=== PATIENT | male | born 1950 | race Caucasian/White ===

== ENCOUNTER 2017-06-29 19:04 | Inpatient (IN) | payer MEDICARE, BC ==
[~2017-06-29] VITALS: Ht 188 cm; Wt 95.6 kg
[2017-06-29] VITALS (277 sets, daily range): BP systolic 121–147; BP diastolic 54–65; PULSE 62–82; TEMP 98.2–98.9; O2SAT 69–100
[2017-06-29 20:44] LABS: HEMATOCRIT 18.5 % (42.0-52.0); HEMOGLOBIN 5.8 g/dl (13.5-18.0)
[2017-06-29 20:50] LABS: INR 1.2 (0.8-3.0); PROTHROMBIN TIME 13.2 SECONDS (9.7-12.8)
[2017-06-29] MEDS ORDERED: ZANTAC 150MG T150 MG PO (20:51)
[2017-06-29] MEDS ORDERED: AVAPRO TAB150 MG/TAB PO (20:52)
[2017-06-29] MEDS ORDERED: ZOCOR 20MG20 MG PO (20:52)
[2017-06-29] MEDS ORDERED: CELEXA10 MG PO (20:53)
[2017-06-29] MEDS ORDERED: FLOMAX 0.40.4 MG/CAP PO (20:53)
[2017-06-29] MEDS ORDERED: MOTRIN 400400 MG/TAB PO (20:56)
[2017-06-30] VITALS (1273 sets, daily range): BP systolic 109–147; BP diastolic 42–78; PULSE 55–81; TEMP 97–98.9; O2SAT 56–100
[2017-06-30 06:15] LABS: BASO % 0.4 % (0.0-2.0); EOS # 0.2 (0.0-0.7); EOS % 2.1 % (0-4.0); GRAN # 5.6 (1.4-6.5); GRAN % 73.2 % (42.2-75.2); LYMPH # 1.3 (1.2-3.4); LYMPH % 16.6 % (20.0-51.0); MEAN CELL VOLUME 96 fl (80.0-100.0); MEAN CORPUSCULAR HGB CONC 31 g/dl (33.0-37.0); MEAN PLATELET VOLUME 11.1 fl (7.4-10.4); MONO # 0.6 (0.1-0.6); MONO % 7.4 % (1.7-9.3); PLATELET COUNT 235 K/mm3 (130-400); RED BLOOD COUNT 2.47 M/mm3 (4.20-5.60); WHITE BLOOD COUNT 7.7 K/mm3 (4.8-10.8)
[2017-06-30 06:17] LABS: HEMATOCRIT 23.7 % (42.0-52.0); HEMOGLOBIN 7.4 g/dl (13.5-18.0); MEAN CORPUSCULAR HEMOGLOBIN 30 pg (27.0-31.0)
[2017-06-30 06:19] LABS: CREATININE, serum 0.88 mg/dL (0.66-1.25); POTASSIUM 3.6 mmol/L (3.4-5.0)
[2017-06-30] MEDS ORDERED: ADVIL200 MG PO (10:52)
[2017-06-30] MEDS ORDERED: ALIGN (10:53)
[2017-06-30 12:11] LABS: HEMATOCRIT 27.4 % (42.0-52.0); HEMOGLOBIN 8.7 g/dl (13.5-18.0)
[2017-06-30 20:46] LABS: HEMATOCRIT 23.9 % (42.0-52.0); HEMOGLOBIN 7.6 g/dl (13.5-18.0)
[2017-07-01] VITALS (909 sets, daily range): BP systolic 101–138; BP diastolic 48–76; PULSE 57–77; TEMP 98–98.7; O2SAT 80–100
[2017-07-01 08:08] LABS: BASO % 0.2 % (0.0-2.0); EOS # 0.1 (0.0-0.7); EOS % 1.3 % (0-4.0); GRAN # 6.7 (1.4-6.5); GRAN % 79.8 % (42.2-75.2); LYMPH % 11.3 % (20.0-51.0); MEAN CELL VOLUME 95 fl (80.0-100.0); MEAN CORPUSCULAR HGB CONC 31 g/dl (33.0-37.0); MEAN PLATELET VOLUME 10.9 fl (7.4-10.4); MONO # 0.6 (0.1-0.6); MONO % 6.9 % (1.7-9.3); PLATELET COUNT 244 K/mm3 (130-400); RED BLOOD COUNT 2.62 M/mm3 (4.20-5.60); WHITE BLOOD COUNT 8.4 K/mm3 (4.8-10.8)
[2017-07-01 08:09] LABS: HEMOGLOBIN 7.7 g/dl (13.5-18.0); MEAN CORPUSCULAR HEMOGLOBIN 29 pg (27.0-31.0)
[2017-07-01 08:16] LABS: CREATININE, serum 0.88 mg/dL (0.66-1.25); POTASSIUM 4.2 mmol/L (3.4-5.0)
[2017-07-01 21:15] LABS: HEMATOCRIT 25.6 % (42.0-52.0); HEMOGLOBIN 7.9 g/dl (13.5-18.0)
[2017-07-02] VITALS (10 sets, daily range): BP systolic 120–150; BP diastolic 32–58; PULSE 59–80; TEMP 98.2–99.3
[2017-07-02 07:02] LABS: HEMATOCRIT 24.7 % (42.0-52.0); HEMOGLOBIN 7.7 g/dl (13.5-18.0)
[2017-07-02] MEDS ORDERED: PROTONIX 40MG T40 MG PO (11:20)
[2017-07-02 16:16] LABS: HEMATOCRIT 29.5 % (42.0-52.0); HEMOGLOBIN 9.2 g/dl (13.5-18.0)
== END 2017-07-02 17:20 | disposition home or self-care (01) | DRG 375 ==
LOC: IMCU 19:04 → ICU 19:19 → MEDICAL 19:19
PROVIDERS: Internal Medicine; Internal Medicine Gastroenterology; Nurse Practitioner
PROC: 0DB68ZX Excision of Stomach, Via Natural or Artificial Opening Endoscopic, Diagnostic (ICD-10-PCS; principal; 2017-07-01 11:30)
PROC: 0DJD8ZZ Inspection of Lower Intestinal Tract, Via Natural or Artificial Opening Endoscopic (ICD-10-PCS; 2017-07-01 11:30)
DX: C16.8 Malignant neoplasm of overlapping sites of stomach (principal); D62 Acute posthemorrhagic anemia; I10 Essential (primary) hypertension; E78.5 Hyperlipidemia, unspecified; N40.0 Benign prostatic hyperplasia without lower urinary tract symptoms; K57.30 Diverticulosis of large intestine without perforation or abscess without bleeding; Z79.1 Long term (current) use of non-steroidal anti-inflammatories (NSAID)
CPT/HCPCS: 99223-AI; 99232-AI; 99239; C9113; J2250; J2405; J3010; J7030; P9016

== ENCOUNTER 2017-12-10 12:52 | Outpatient (CLI) | payer MEDICARE, BC ==
[~2017-12-10] VITALS: Ht 180.3 cm; Wt 73.6 kg
[~2017-12-10 12:52] MED LIST: ADVIL200 MG PO; ALIGN; AVAPRO TAB150 MG/TAB PO; CELEXA10 MG PO; FLOMAX 0.40.4 MG/CAP PO; MOTRIN 400400 MG/TAB PO; PROTONIX 40MG T40 MG PO; ZANTAC 150MG T150 MG PO; ZOCOR 20MG20 MG PO
[2017-12-10 13:56] VITALS: BP 110/75; PULSE 78
[2017-12-10] MEDS ORDERED: MUCINEX 60600 MG/TA1 PO (14:00)
[2017-12-10] MEDS ORDERED: AVAPRO TAB150 MG/TAB PO (14:02)
[2017-12-10] MEDS ORDERED: FLOMAX 0.40.4 MG/CAP PO (14:02)
[2017-12-10] MEDS ORDERED: ZYRTEC 10MG10 MG PO (14:03)
[2017-12-10] MEDS ORDERED: PROTONIX 40MG T40 MG PO (14:03)
[2017-12-10] MEDS ORDERED: ZOCOR 20MG20 MG PO (14:03)
[2017-12-10] MEDS ORDERED: MULTI VITAMINS1 TAB PO (14:04)
[2017-12-10] MEDS ORDERED: CELEXA10 MG PO (14:04)
[2017-12-10] MEDS ORDERED: GENTAMICIN180 MG/502 NS (14:05)
[2017-12-10 14:10] LABS: INR 2.1 (0.8-3.0); PROTHROMBIN TIME 23.8 SECONDS (9.7-12.8)
[2017-12-10 14:30] VITALS: BP 110/75; PULSE 78
[2017-12-10] MEDS ORDERED: XARELTO15 MG PO (14:43)
== END 2017-12-10 15:41 | disposition home or self-care (01) ==
LOC: COL.CAR 12:52
PROVIDERS: Radiology Diagnostic Radiology
DX: Z13.6 Encounter for screening for cardiovascular disorders (principal); C83.38 Diffuse large B-cell lymphoma, lymph nodes of multiple sites; Z86.718 Personal history of other venous thrombosis and embolism; Z95.828 Presence of other vascular implants and grafts
CPT/HCPCS: J1644

== ENCOUNTER 2017-12-17 09:53 | Outpatient (CLI) | payer MEDICARE, BC ==
[~2017-12-17] VITALS: Ht 180.3 cm; Wt 75.0 kg
[2017-12-17] VITALS (11 sets, daily range): BP systolic 115–137; BP diastolic 65–74; PULSE 63–74; TEMP 98.1–98.9
[~2017-12-17 09:53] MED LIST changes: +GENTAMICIN180 MG/502 NS; +MUCINEX 60600 MG/TA1 PO; +MULTI VITAMINS1 TAB PO; +XARELTO15 MG PO; +ZYRTEC 10MG10 MG PO
[2017-12-17] MEDS ORDERED: ZYLOPRIM 300MG300 MG PO (10:15)
[2017-12-17 10:46] LABS: HEMOGLOBIN 10.7 g/dl (13.5-18.0); MEAN CELL VOLUME 97 fl (80.0-100.0); MEAN CORPUSCULAR HEMOGLOBIN 31 pg (27.0-31.0); MEAN CORPUSCULAR HGB CONC 32 g/dl (33.0-37.0); MEAN PLATELET VOLUME 11.5 fl (7.4-10.4); PLATELET COUNT 116 K/mm3 (130-400); RED BLOOD COUNT 3.42 M/mm3 (4.20-5.60); REDCELL DISTRIBUTION WIDTH-CV 18.4 % (11.5-14.5)
[2017-12-17 10:48] LABS: HEMATOCRIT 33.1 % (42.0-52.0)
[2017-12-17 10:50] LABS: PROTHROMBIN TIME 11.6 SECONDS (9.7-12.8)
[2017-12-17 10:55] LABS: CREATININE, serum 0.46 mg/dL (0.66-1.25)
[2017-12-17] MEDS ORDERED: COMPAZINE 110 MG/TAB PO (11:01)
[2017-12-17] MEDS ORDERED: MARINOL 2.5MG2.5 MG PO (11:02)
[2017-12-17] MEDS ORDERED: COLACE 100100 MG/CAP PO (11:03)
[2017-12-17] MEDS ORDERED: FLONASE SENSIM9.9 ML NS (11:03)
[2017-12-17] MEDS ORDERED: ZOFRAN8 MG PO (11:04)
[2017-12-17] MEDS ORDERED: SENOKOT S 50 MG1 TAB PO (11:05)
[2017-12-17] MEDS ORDERED: CARAFATE 1GM1 G PO (11:07)
[2017-12-17] MEDS ORDERED: TYLENOL 500MG500 MG PO (11:10)
[2017-12-17] MEDS ORDERED: BENADRYL50 MG PO (11:11)
[2017-12-17] MEDS ORDERED: PREDNISONE10 MG PO (11:12)
== END 2017-12-17 15:37 | disposition home or self-care (01) ==
LOC: COL.CAR 09:53
PROVIDERS: Radiology Diagnostic Radiology
DX: Z45.2 Encounter for adjustment and management of vascular access device (principal); C83.38 Diffuse large B-cell lymphoma, lymph nodes of multiple sites; Z88.2 Allergy status to sulfonamides; Z88.1 Allergy status to other antibiotic agents; Z79.01 Long term (current) use of anticoagulants
CPT/HCPCS: C1769; J1644; J2250; J3010; J7120; Q9967